=== PATIENT | male | born 1990 | race African-American/Black ===

== ENCOUNTER 2017-01-30 19:17 | Emergency (ER) | payer MEDICAID ==
[~2017-01-30] VITALS: Ht 180.3 cm; Wt 64.0 kg
[2017-01-30 19:23] VITALS: BP 111/65
== END 2017-01-31 00:15 | disposition left against medical advice (07) ==
LOC: ER 19:17
DX: S61.412A Laceration without foreign body of left hand, initial encounter (principal); Z53.21 Procedure and treatment not carried out due to patient leaving prior to being seen by health care provider; X58.XXXA Exposure to other specified factors, initial encounter; Y93.89 Activity, other specified; Y92.89 Other specified places as the place of occurrence of the external cause; Y99.8 Other external cause status

== ENCOUNTER 2017-01-31 04:14 | Emergency (ER) | payer MEDICAID ==
[~2017-01-31] VITALS: Ht 180.3 cm; Wt 63.0 kg
[2017-01-31 04:56] VITALS: BP 133/73
[2017-01-31] MEDS ORDERED: TETANUS, DIPHTHERIA, PERTUSSIS VAC/PF 0.5ML (>7YR OLD) IM ONE (06:15)
[2017-01-31] MEDS ORDERED: BACITRACIN ZINC OINT UDPKT TOP ONE (06:15)
== END 2017-01-31 07:11 | disposition home or self-care (01) ==
LOC: ER 04:15
DX: S61.412A Laceration without foreign body of left hand, initial encounter (principal); Y28.8XXA Contact with other sharp object, undetermined intent, initial encounter; Y93.89 Activity, other specified; Y92.89 Other specified places as the place of occurrence of the external cause; Y99.8 Other external cause status
CPT/HCPCS: 90471; 90715; 99283; X7700; Z7610

== ENCOUNTER 2017-12-22 21:31 | Emergency (ER) | payer MEDICAID ==
[~2017-12-22] VITALS: Ht 180.3 cm; Wt 69.0 kg
[2017-12-23] MEDS ORDERED: IBUPROFEN 600MG TABLET PO ONE (04:15)
[2017-12-23 06:03] VITALS: BP 120/75
== END 2017-12-23 06:09 | disposition home or self-care (01) ==
LOC: ER 21:31
DX: S62.337A Displaced fracture of neck of fifth metacarpal bone, left hand, initial encounter for closed fracture (principal); S60.221A Contusion of right hand, initial encounter; S80.211A Abrasion, right knee, initial encounter; Y04.0XXA Assault by unarmed brawl or fight, initial encounter; Y04.1XXA Assault by human bite, initial encounter; Y93.89 Activity, other specified; Y92.018 Other place in single-family (private) house as the place of occurrence of the external cause
CPT/HCPCS: 29125; 73130; 73562; 99284

== ENCOUNTER 2019-01-14 09:50 | Emergency (ER) | payer MEDICAID ==
[~2019-01-14] VITALS: Ht 177.8 cm; Wt 61.0 kg
[2019-01-14 09:58] VITALS: BP 120/80
[2019-01-14] MEDS ORDERED: IBUPROFEN 600MG TABLET PO ONE (10:15)
[2019-01-14] MEDS ORDERED: TRAMADOL 50MG TABLET PO ONE (11:15)
== END 2019-01-14 11:31 | disposition home or self-care (01) ==
LOC: ER 09:50
DX: S82.402A Unspecified fracture of shaft of left fibula, initial encounter for closed fracture (principal); X50.1XXA Overexertion from prolonged static or awkward postures, initial encounter; Y93.9 Activity, unspecified; Y92.9 Unspecified place or not applicable
CPT/HCPCS: 29515; 73610; 73630; 99283